=== PATIENT | male | born 1950 | race Caucasian/White ===

== ENCOUNTER 2018-01-01 08:55 | Emergency (ER) | payer MEDICARE, OTHER ==
[~2018-01-01] VITALS: Ht 172.7 cm; Wt 83.0 kg
[2018-01-01 10:21] VITALS: BP 118/80
--- NOTE | 2018-01-01 10:22 | NUR ---
Re-evaluated and updated by MD for discharge-ACI given verbalized understanding. Home ambulatory in stable condition.
== END 2018-01-01 10:47 | disposition home or self-care (01) ==
LOC: ER 08:56
DX: F41.9 Anxiety disorder, unspecified (principal); J44.9 Chronic obstructive pulmonary disease, unspecified; I48.91 Unspecified atrial fibrillation
CPT/HCPCS: 71045; 93005; 99284; A4606; Z7610

== ENCOUNTER 2018-03-10 18:54 | Inpatient (IN) | payer MEDICARE, OTHER ==
[~2018-03-10] VITALS: Ht 172.7 cm; Wt 83.0 kg
--- NOTE | 2018-03-10 19:21 | NUR ---
PT BIB SELF WHO C/O SOB ON EXERTION, [id number]. ALERT AND ORIENTED X 4. ON ROOM AIR, BREATHING EVENLY AND UNLABORED. AWAITING FOR MD FOR EVAL. KEPT COMFORTABLE. WILL CONTINUE TO MONITOR ACCORDINGLY.
[2018-03-10] MEDS ORDERED: methylPREDNISolone SOD SUCC 125 MG/2ML VIAL ONE (19:27)
[2018-03-10] MEDS ORDERED: DILTIAZEM HCL 50 MG IV ONE (19:28)
[2018-03-10] MEDS ORDERED: IPRATROPIUM NEB FS 0.5 MG/2.5 ML AMPUL.NEB NEB ONE (19:30)
[2018-03-10] MEDS ORDERED: ALBUTEROL FS 2.5 MG/3 ML VIAL.NEB NEB ONE (19:30)
[2018-03-10] MEDS ORDERED: DILTIAZEM HCL 50 MG IV IV ONE (19:30)
[2018-03-10] MEDS ORDERED: methylPREDNISolone SOD SUCC 125 MG/2ML VIAL IV ONE (19:30)
[2018-03-10] MEDS ORDERED: DILTIAZEM HCL 25 MG IV ONE (19:32)
[2018-03-10] MEDS ORDERED: APIX5TAB PO (19:33)
[2018-03-10] MEDS ORDERED: METO100T14 PO (19:33)
[2018-03-10] MEDS ORDERED: ATOR10TA PO (19:33)
[2018-03-10] MEDS ORDERED: FINA5TAB3 PO (19:33)
[2018-03-10] MEDS ORDERED: LISI10TA5 PO (19:33)
[2018-03-10] MEDS ORDERED: SPIR25TA PO (19:33)
[2018-03-10] MEDS ORDERED: DILT240C88 PO (19:33)
[2018-03-10] MEDS ORDERED: ASPI-1169 PO (19:33)
[2018-03-10] MEDS ORDERED: TAMS-12 PO (19:33)
[2018-03-10] MEDS ORDERED: LEVA15HF4 INH (19:35)
--- NOTE | 2018-03-10 19:36 | NUR ---
ENDORSED TO NEXT SHIFT BENNY PETER FOR PARVEZ. TOOK CARDIZEM 50MG/10ML GIVEN 10MG ORDERED.
[2018-03-10 19:40] LABS: BASOPHILS % (AUTO) 0.2 % (0.0-2.0); EOSINOPHILS % (AUTO) 0.2 % (0.0-6.0); HEMATOCRIT 29 % (39-51); HEMOGLOBIN 9.1 g/dL (13.5-17.5); LYMPHOCYTES # (AUTO) 1.4 /CMM (0.8-4.8); LYMPHOCYTES % (AUTO) 11.3 % (20.0-44.0); MEAN CORPUSCULAR HGB CONC 32 g/dl (31.0-36.0); MEAN CORPUSCULAR VOLUME 79 fL (80-96); MONOCYTES # (AUTO) 1.2 /CMM (0.1-1.30); MONOCYTES % (AUTO) 9.3 % (2.0-12.0); NEUTROPHILS # (AUTO) 9.9 /CMM (1.8-8.9); PLATELET COUNT (AUTO) 333 /CMM (150-450); RED BLOOD CELL COUNT(AUTO) 3.66 MIL/uL (4.5-6.0); WHITE BLOOD COUNT (AUTO) 12.5 K/uL (4.3-11.0)
--- NOTE | 2018-03-10 19:40 | NUR ---
BLOOD TAKEN BY ENTERPRISE APPLICATIONS MANAGER
[2018-03-10 19:46] LABS: CALCIUM, SERUM 9.6 mg/dL (8.5-10.1); CARBON DIOXIDE 24 mmol/L (21-32); CHLORIDE 100 mmol/L (98-107); CREATININE 1.4 mg/dL (0.6-1.3); GLUCOSE 121 mg/dL (74-106); POTASSIUM 4.8 mmol/L (3.5-5.1); SODIUM SERUM 137 mmol/L (136-145); UREA NITROGEN, BLOOD 35 mg/dL (7-18)
[2018-03-10] MEDS ORDERED: ALBUTEROL FS 2.5 MG/3 ML VIAL.NEB ONE (19:46)
--- NOTE | 2018-03-10 19:50 | NUR ---
RT AT BEDSIDE
[2018-03-10] MEDS ORDERED: LEVOFLOXACIN 750 MG /D5W 150ML PIGGYBACK IV ONE (20:00)
[2018-03-10 20:02] LABS: ALANINE AMINOTRANSFERASE 35 U/L (12-78); ALBUMIN 3.8 g/dL (3.4-5.0); ALKALINE PHOSPHATASE 73 U/L (46-116); ASPARTATE AMINOTRANSFERASE 18 U/L (15-37); B-TYPE NATRIURETIC PEPTIDE 4422 PG/ML (0-125); BILIRUBIN,DIRECT 0.1 mg/dL (0.0-0.2); BILIRUBIN,TOTAL 0.4 mg/dL (0.2-1.0); TOTAL PROTEIN, SERUM 8.1 g/dL (6.4-8.2)
[2018-03-10] MEDS ORDERED: LEVOFLOXACIN 750 MG /D5W 150ML 150 ML IV ONE (20:13)
--- NOTE | 2018-03-10 20:57 | NUR ---
ADMIT TO 325-1 TELE
--- NOTE | 2018-03-10 21:17 | NUR ---
REPORT GIVEN TO LUTHER
[2018-03-10] MEDS ORDERED: DEXTROSE 50%-WATER 50 ML DISP.SYRIN IV PRN (21:30)
[2018-03-10] MEDS ORDERED: ONDANSETRON HCL/PF 4 MG/2 ML VIAL IVP PRN (21:30)
[2018-03-10] MEDS ORDERED: ACETAMINOPHEN 325 MG TABLET PO PRN (21:30)
[2018-03-10] MEDS ORDERED: ALBUTEROL FS 2.5 MG/0.5 ML VIAL.NEB NEB PRN (21:30)
[2018-03-10] MEDS ORDERED: MORPHINE SULFATE INJ 2 MG/ML DISP.SYRIN IV PRN (21:30)
[2018-03-10] MEDS ORDERED: NITROGLYCERIN 0.4 MG/TAB BOTTLE SL PRN (21:30)
[2018-03-10] MEDS ORDERED: MAGNESIUM HYDROXIDE 30 ML UDC PO PRN (21:30)
[2018-03-10] MEDS ORDERED: Z GUARD REMEDY 2 OZ OINT TP PRN (21:30)
[2018-03-10] MEDS ORDERED: MAG HYDROX/AL HYDROX/SIMETH 30 ML UDC PO PRN (21:30)
[2018-03-10] MEDS ORDERED: TEMAZEPAM 15 MG CAPSULE PO PRN (21:30)
--- NOTE | 2018-03-10 21:30 | NUR ---
TOPOGRAPHICAL DRAFTER NOTES - ADMISSION RECEIVED PATIENT FROM ER VIA [place]. WITH PATENT PERIPHERAL IV LINE RAC G#20, SL. PATIENT DENIES DISCOMFORT AT THIS TIME. NO RESPIRATORY DISTRESS NOTED. ADMISSION ROUTINE DONE. PATIENT PREFERRED TO HAVE HIS PANTS ON. BLE PITTING EDEMA + 1 NOTED. KEEP CLEAN DRY AND COMFORTABLE. CALL LIGHT WITHIN EASY REACH. ON TELE MONITOR HR 160 AFIB. STAT ECG DONE. STEAM TUNNEL FEEDER MD NOTIFIED.
[2018-03-10] MEDS: FUROSEMIDE 40 MG/4 ML VIAL IV SCH (21:49)
[2018-03-10] MEDS: ZOLPIDEM TARTRATE 5 MG TABLET PO PRN (21:49)
--- NOTE | 2018-03-10 22:55 | NUR ---
PREPARED FOODS SERVICE TEAM MEMBER NOTES PATIENT ON AFIB 160. TECHNICAL PROJECT LEAD MD DR LACEY NOTIFIED WITH ORDERS NOTED AND CARRIED OUT. PATIENT REMAINED STABLE AND NO COMPLAINTS AT THIS TIME. WILL CONTINUE TO MONITOR ACCORDINGLY.
[2018-03-10] MEDS ORDERED: ATENOLOL 50 MG TABLET PO SCH (23:00)
[2018-03-11] MEDS ORDERED: DILTIAZEM HCL IV 125 MG in IV D5W 100 ML IV PRN ×2
--- NOTE | 2018-03-11 00:10 | NUR ---
PARK INTERPRETIVE RANGER NOTES PATIENT REMAINS AFIB WITH HR 170. NOTIFIED HIGH SCHOOL TEACHER MD WITH ORDER TO TRANSFER PATIENT TO [facility]. REPORT GIVEN TO [facility] RN CHICHI. TRANSFERRED PATIENT TO [facility] 112-2. IN STABLE CONDITION.
[2018-03-11] MEDS: INSULIN REGULAR, HUMAN 100 UNIT/ML 3 ML VIAL SQ PRN ×3 (00:16→23:50)
[2018-03-11] MEDS: BLOOD SUGAR DIAGNOSTIC 1 EACH STRIP IN SCH ×5 (00:17→23:43)
[2018-03-11] MEDS ORDERED: DILTIAZEM HCL 25 MG IV ONE ×2 (00:20→00:21)
[2018-03-11] MEDS ORDERED: DILTIAZEM HCL IV PRN (01:00)
[2018-03-11] MEDS ORDERED: D5W IV PRN (01:00)
[2018-03-11 01:04] VITALS: BP 128/79
--- NOTE | 2018-03-11 01:24 | NUR ---
TD RN NOTES RECEIVED PT FROM BED WITH MS RN. A/O X 4. ON NASAL CANNULA 3LPM SATURATING WELL AND NO RESPIRATORY DISTRESS NOTED. HEART RATE OF AFIB 150. BLOOD PRESSURE OF 128/79. NO FEVER. WILL CONTINUE TO MONITOR PT CLOSELY.
--- NOTE | 2018-03-11 01:26 | NUR ---
TD RN NOTES PER ONCALL. START DILTIAZEM DRIP ON 5MG/HR. WILL CONTINUE TO MONITOR PT CLOSELY.
[2018-03-11] MEDS: ZOLPIDEM TARTRATE 5 MG TABLET PO PRN ×2 (01:27→21:35)
--- NOTE | 2018-03-11 01:35 | NUR ---
TD RN NOTES PER ONCALL OKAY TO GIVE ANOTHER DOSE OF AMBIEN 5MG
--- NOTE | 2018-03-11 01:58 | NUR ---
TD RN NOTES PT REFUSED WOUND PICTURE, WANTS TO REST.
[2018-03-11 04:00] VITALS: BP 114/75
[2018-03-11 06:10] LABS: ALBUMIN 3.4 g/dL (3.4-5.0); BILIRUBIN,TOTAL 0.5 mg/dL (0.2-1.0); CALCIUM, SERUM 9.4 mg/dL (8.5-10.1); CREATININE 1.5 mg/dL (0.6-1.3); MAGNESIUM 1.6 mg/dL (1.8-2.4); PHOSPHORUS 4.4 mg/dL (2.5-4.9); POTASSIUM 4.6 mmol/L (3.5-5.1); TOTAL PROTEIN, SERUM 7.5 g/dL (6.4-8.2)
[2018-03-11 06:32] LABS: BASOPHILS % (AUTO) 0.6 % (0.0-2.0); EOSINOPHILS % (AUTO) 0.1 % (0.0-6.0); HEMATOCRIT 25 % (39-51); HEMOGLOBIN 8.2 g/dL (13.5-17.5); LYMPHOCYTES # (AUTO) 0.4 /CMM (0.8-4.8); LYMPHOCYTES % (AUTO) 5.8 % (20.0-44.0); MEAN CORPUSCULAR HGB CONC 33 g/dl (31.0-36.0); MEAN CORPUSCULAR VOLUME 79 fL (80-96); MONOCYTES # (AUTO) 0.2 /CMM (0.1-1.30); MONOCYTES % (AUTO) 2.5 % (2.0-12.0); NEUTROPHILS # (AUTO) 6.3 /CMM (1.8-8.9); PLATELET COUNT (AUTO) 286 /CMM (150-450); RED BLOOD CELL COUNT(AUTO) 3.21 MIL/uL (4.5-6.0); WHITE BLOOD COUNT (AUTO) 6.9 K/uL (4.3-11.0)
[2018-03-11] MEDS: IPRATROPIUM NEB FS 0.5 MG/2.5 ML AMPUL.NEB NEB PRN ×3 (06:48→19:49)
[2018-03-11 06:53] LABS: APPEARANCE,URINE CLEAR (CLEAR); BILIRUBIN,URINE NEGATIVE (NEGATIVE); BLOOD, URINE NEGATIVE Ery/uL (NEGATIVE); COLOR,URINE YELLOW (YELLOW); KETONES,URINE NEGATIVE (NEGATIVE); LEUKOCYTE ESTERASE ,URINE NEGATIVE (NEGATIVE); NITRITE, URINE NEGATIVE (NEGATIVE); PROTEIN,URINE 100 mg/dl (NEGATIVE); UGLUCOSE NEGATIVE (NEGATIVE); UROBILINOGEN,URINE 0.2 EU/dL (0.2)
--- NOTE | 2018-03-11 07:04 | NUR ---
TD RN NOTES NO ACUTE CHANGES NOTED DURING THE SHIFT. PROVIDED COMFORT AND SAFETY. WILL ENDORSE TO THE AM NURSE FOR CONTINUITY OF CARE
[2018-03-11 07:11] LABS: BACTERIA,URINE Rare /HPF (None Seen); CALCIUM OXALATE CRYSTALS,UR Few /HPF (None Seen); RBC,URINE NONE SEEN /HPF (0-2); SQUAMOUS EPITHELIAL CELL,UR Rare /HPF (None Seen); WBC,URINE 0-2 /HPF (0-3)
[2018-03-11 08:00] VITALS: BP 113/79
[2018-03-11] MEDS ORDERED: METOPROLOL TARTRATE 50 MG TABLET PO SCH (09:00)
[2018-03-11] MEDS ORDERED: LISINOPRIL (10MG) 10 MG TABLET PO SCH (09:00)
[2018-03-11] MEDS: TAMSULOSIN 0.4 MG CAP.SR.24H PO SCH ×2 (09:36→17:50)
[2018-03-11] MEDS: FINASTERIDE (5 MG) 5 MG TABLET PO SCH (09:36)
[2018-03-11] MEDS: ASPIRIN 81 MG TAB.CHEW PO SCH (09:36)
[2018-03-11] MEDS: SPIRONOLACTONE 25 MG TABLET PO SCH (09:36)
[2018-03-11] MEDS: DILTIAZEM HCL CD 240 MG PO SCH (09:36)
[2018-03-11] MEDS: methylPREDNISolone SOD SUCC 40 MG/ML VIAL IV SCH ×3 (09:37→17:50)
[2018-03-11] MEDS: FUROSEMIDE 40 MG/4 ML VIAL IV SCH ×2 (09:39→17:50)
[2018-03-11] MEDS: PANTOPRAZOLE 40 MG TABLET.DR PO SCH (09:39)
[2018-03-11] MEDS ORDERED: LEVALBUTEROL HCL NEB 1.25 MG/0.5 ML VIAL.NEB NEB PRN (11:00)
[2018-03-11] MEDS ORDERED: DIGOXIN INJ 0.5 MG/2 ML AMPUL IV ONE (11:30)
[2018-03-11 12:00] VITALS: BP 109/79
[2018-03-11] MEDS: Magnesium 1GM/D5W 100ML PREMIX 100 ML IV SCH ×2 (12:18→13:22)
[2018-03-11] MEDS: APIXABAN 5 MG TABLET PO SCH ×2 (13:22→17:50)
[2018-03-11] MEDS: HYDROCODONE/APAP 5/325MG 1 EACH TABLET PO PRN (13:46)
[2018-03-11 16:00] VITALS: BP 103/65
[2018-03-11 20:00] VITALS: BP 107/62
[2018-03-11] MEDS ORDERED: LEVOFLOXACIN 750 MG /D5W 150ML 750 MG in PREMIX 1 EA IV SCH (20:00)
[2018-03-11] MEDS: ATORVASTATIN 10 MG TABLET PO SCH (20:31)
[2018-03-12] VITALS: BP 101/63
--- NOTE | 2018-03-12 | NUR ---
[facility]ANK RN NOTE PT STATES HE DOES NOT HAVE DIABETES AND DOES NOT NEED INSULIN. EXPLAINED RISKS AND BENEFITS AND PT REFUSED. WILL MONITOR.
[2018-03-12 04:00] VITALS: BP 91/51
[2018-03-12] MEDS: BLOOD SUGAR DIAGNOSTIC 1 EACH STRIP IN SCH ×3 (06:08→17:09)
[2018-03-12 06:55] LABS: DIGOXIN 0.4 ng/mL (0.90-2.00)
[2018-03-12 08:00] VITALS: BP 116/62
--- NOTE | 2018-03-12 08:00 | NUR ---
[facility]ANK/RN: Pt received, A&Ox4, on RA, denies pain and discomfort, noted with SOB with exertion with audible expiratory wheezing. A-fib 90's on monitor. IV HL flushed, patent and intact. Oriented to unit and poc, educated extensively on meds. Noted with L leg wound with scab and stitches x4, per pt, stitches were supposed to be removed "2 weeks ago." Dry skin noted throughout BLE. Wound care consult requested. Will cont to monitor pt status.
[2018-03-12] MEDS: PANTOPRAZOLE 40 MG TABLET.DR PO SCH (08:14)
[2018-03-12] MEDS: FINASTERIDE (5 MG) 5 MG TABLET PO SCH (08:14)
[2018-03-12] MEDS: FUROSEMIDE 40 MG/4 ML VIAL IV SCH ×2 (08:14→17:08)
[2018-03-12] MEDS: methylPREDNISolone SOD SUCC 40 MG/ML VIAL IV SCH ×3 (08:14→17:08)
[2018-03-12] MEDS: TAMSULOSIN 0.4 MG CAP.SR.24H PO SCH ×2 (08:14→17:09)
[2018-03-12] MEDS: ASPIRIN 81 MG TAB.CHEW PO SCH (08:15)
[2018-03-12] MEDS: SPIRONOLACTONE 25 MG TABLET PO SCH (08:15)
[2018-03-12] MEDS: DILTIAZEM HCL CD 240 MG PO SCH (08:16)
[2018-03-12] MEDS: METOPROLOL SUCCINATE 50 MG TAB.SR.24H PO SCH (08:16)
[2018-03-12] MEDS: APIXABAN 5 MG TABLET PO SCH ×2 (08:17→17:08)
[2018-03-12 09:00] LABS: CALCIUM, SERUM 8.9 mg/dL (8.5-10.1); CREATININE 1.7 mg/dL (0.6-1.3); POTASSIUM 4.5 mmol/L (3.5-5.1)
[2018-03-12] MEDS: IPRATROPIUM NEB FS 0.5 MG/2.5 ML AMPUL.NEB NEB PRN (09:28)
[2018-03-12] MEDS: INSULIN REGULAR, HUMAN 100 UNIT/ML 3 ML VIAL SQ PRN (11:27)
[2018-03-12 12:00] VITALS: BP 103/65
[2018-03-12] MEDS: DIGOXIN 0.125 MG TABLET PO SCH (12:46)
[2018-03-12 16:00] VITALS: BP 108/64
[2018-03-12] MEDS: ATORVASTATIN 10 MG TABLET PO SCH (17:09)
--- NOTE | 2018-03-12 17:30 | NUR ---
[facility]/RN: Jamie Timmons, SAMPLE MAKER at bedside; updated on pt status. Educated on POC, verbalized understanding. SAMPLE MAKER removed stitches x4 on L leg, tolerated well. Pain medicated with [place] as ordered. Per SAMPLE MAKER, apply bactroban to affected site. Noted and carried out. For dc planning tomorrow.
[2018-03-12] MEDS: HYDROCODONE/APAP 5/325MG 1 EACH TABLET PO PRN (17:35)
[2018-03-12] MEDS: LEVALBUTEROL HCL NEB 1.25 MG/0.5 ML VIAL.NEB NEB SCH (19:55)
[2018-03-12] MEDS: IPRATROPIUM NEB FS 0.5 MG/2.5 ML AMPUL.NEB NEB SCH (19:55)
[2018-03-12 20:00] VITALS: BP 102/60
[2018-03-12] MEDS ORDERED: LEVOFLOXACIN 750 MG /D5W 150ML 750 MG in PREMIX 1 EA IV SCH (20:00)
[2018-03-12] MEDS: ZOLPIDEM TARTRATE 5 MG TABLET PO PRN (22:04)
[2018-03-13] VITALS: BP 91/47
[2018-03-13] MEDS: BLOOD SUGAR DIAGNOSTIC 1 EACH STRIP IN SCH ×3 (00:14→12:18)
[2018-03-13] MEDS: INSULIN REGULAR, HUMAN 100 UNIT/ML 3 ML VIAL SQ PRN ×2 (00:21→12:24)
[2018-03-13] MEDS: IPRATROPIUM NEB FS 0.5 MG/2.5 ML AMPUL.NEB NEB SCH ×3 (01:30→14:14)
[2018-03-13 04:00] VITALS: BP 111/60
[2018-03-13] MEDS: HYDROCODONE/APAP 5/325MG 1 EACH TABLET PO PRN ×2 (04:29→08:44)
[2018-03-13] MEDS: LEVALBUTEROL HCL NEB 1.25 MG/0.5 ML VIAL.NEB NEB SCH ×2 (07:49→14:14)
[2018-03-13 08:00] VITALS: BP 125/74
[2018-03-13] MEDS: FINASTERIDE (5 MG) 5 MG TABLET PO SCH (08:30)
[2018-03-13] MEDS: ASPIRIN 81 MG TAB.CHEW PO SCH (08:30)
[2018-03-13] MEDS: PANTOPRAZOLE 40 MG TABLET.DR PO SCH (08:30)
[2018-03-13] MEDS: APIXABAN 5 MG TABLET PO SCH (08:30)
[2018-03-13] MEDS: TAMSULOSIN 0.4 MG CAP.SR.24H PO SCH (08:30)
[2018-03-13] MEDS: SPIRONOLACTONE 25 MG TABLET PO SCH (08:30)
[2018-03-13 08:31] VITALS: BP 125/74
[2018-03-13] MEDS: METOPROLOL SUCCINATE 50 MG TAB.SR.24H PO SCH (08:31)
[2018-03-13] MEDS: DILTIAZEM HCL CD 240 MG PO SCH (08:31)
[2018-03-13] MEDS: FUROSEMIDE 40 MG/4 ML VIAL IV SCH (08:31)
--- NOTE | 2018-03-13 08:31 | NUR ---
INITIAL SOFTWARE SPECIALIST NOTE RCVD PT AWAKE AND ALERT, SHOWING NO S/O DISTRESS, AFIB ON TELE. ON RA TOLERATING WELL. VOIDING TO URINAL. PT AMBULATORY WITH STEADY GAIT. IV SITE C/D/I/PATENT. NO S/O INFILTRATION/PHLEBITIS OBSERVED UPON FLUSHING. WILL CONTINUE TO MONITOR PT FOR SAFETY AND COMFORT. BED IN LOW AND LOCKED POSITION. CALL LIGHT WITHIN REACH.
[2018-03-13] MEDS ORDERED: NEOMY SULF/BACITRAC ZN/POLY 15 GM TUBE TP SCH (09:00)
[2018-03-13] MEDS ORDERED: methylPREDNISolone SOD SUCC 40 MG/ML VIAL IV SCH (09:00)
--- NOTE | 2018-03-13 09:09 | NUR ---
WOUND CARE CONSULT: PT PRESENTS WITH CRUSTED WOUND TO LEFT LATERAL LOWER LEG, PRESENT ON ADMISSION. SUTURES PREVIOUSLY REMOVED BY DNP. RECOMMEND FOLLOW WITH DPM. RECOMMENDATIONS MADE FOR WOUND CARE AND SKIN PROTECTION. DISCUSSED WITH NURSING STAFF. WILL SEE PRN. CURRENT CORINNE SCORE IS 23. MD IN AGREEMENT WITH PLAN OF CARE. Addendum: 03/13/18 at 0911 by ANDRES FINLEY WNDNU Amended: Links added.
[2018-03-13] MEDS ORDERED: MINERAL OIL/PETROLATUM,WHITE 120 GM JAR TP PRN ×2 (09:30→10:30)
[2018-03-13] MEDS: DIGOXIN 0.125 MG TABLET PO SCH (12:19)
[2018-03-13 13:08] LABS: CREATININE 1.5 mg/dL (0.6-1.3); POTASSIUM 3.9 mmol/L (3.5-5.1)
[2018-03-13 13:13] LABS: ALBUMIN 3.5 g/dL (3.4-5.0); BILIRUBIN,TOTAL 0.3 mg/dL (0.2-1.0); HEMATOCRIT 27 % (39-51); HEMOGLOBIN 8.5 g/dL (13.5-17.5); LYMPHOCYTES # (AUTO) 0.2 /CMM (0.8-4.8); LYMPHOCYTES % (AUTO) 1.2 % (20.0-44.0); MEAN CORPUSCULAR HGB CONC 31 g/dl (31.0-36.0); MEAN CORPUSCULAR VOLUME 79 fL (80-96); MONOCYTES # (AUTO) 0.5 /CMM (0.1-1.30); MONOCYTES % (AUTO) 2.6 % (2.0-12.0); NEUTROPHILS # (AUTO) 19.1 /CMM (1.8-8.9); NEUTROPHILS % (AUTO) 96.2 % (43.0-81.0); PLATELET COUNT (AUTO) 284 /CMM (150-450); RED BLOOD CELL COUNT(AUTO) 3.41 MIL/uL (4.5-6.0); TOTAL PROTEIN, SERUM 7.5 g/dL (6.4-8.2); WHITE BLOOD COUNT (AUTO) 19.8 K/uL (4.3-11.0)
[2018-03-13] MEDS ORDERED: PNEUMOCOCCAL 23-VAL P-SAC VAC 0.5 ML VIAL SQ ONE (14:00)
--- NOTE | 2018-03-13 15:24 | NUR ---
PROFESSOR OF POULTRY SCIENCE NOTE PT ALERT AND ORIENTED X 4, DISCHARGED HOME IN STABLE CONDITION, IV SITE REMOVED TIP OF CATHETER INTACT. PRESSURE DRESSING IN PLACE. NO BLEEDING OBSERVED. DISCHARGE INSTRUCTIONS DISCUSSED AND GIVEN TO PT, QUESTIONS ANSWERED. PER PT HE WILL SEE HIS [facility]ACT[facility] NURSE THIS AFTERNOON AT 1730. PER HARSHAL STORM IT WAS OK TO GIVE PNEUMONIA AND FLU VACCINES TO PT, THESE WERE GIVEN ORDERED. PT INSISTED TO WAIT FOR FAMILY IN THE LOBBY AREA, PT WAS ACCOMPANIED TO LOBBY BY ANNIE. PT AMBULATED WITH STEADY GAIT. ALL BELONGINGS WERE TAKEN HOME WITH PT. NO PERSONAL ITEMS WERE LEFT BEHIND.
[2018-03-14] MEDS ORDERED: DAKINS QUARTER STRENGTH (0.125%) 480 ML BOTTLE TOP SCH (09:00)
== END 2018-03-13 15:20 | disposition home or self-care (01) | DRG 871 ==
LOC: ER 19:01 → TELE 21:08 → TELE-TD 03-11 00:04 → TELE1 03-12 15:49
PROVIDERS: ADMIT Nurse Practitioner Acute Care; ATTEND Nurse Practitioner Acute Care
DX: A41.9 Sepsis, unspecified organism (principal); N17.0 Acute kidney failure with tubular necrosis; J18.9 Pneumonia, unspecified organism; I50.23 Acute on chronic systolic (congestive) heart failure; J44.1 Chronic obstructive pulmonary disease with (acute) exacerbation; E87.2 Acidosis; D68.59 Other primary thrombophilia; I13.0 Hypertensive heart and chronic kidney disease with heart failure and stage 1 through stage 4 chronic kidney disease, or unspecified chronic kidney disease; J44.0 Chronic obstructive pulmonary disease with (acute) lower respiratory infection; L97.229 Non-pressure chronic ulcer of left calf with unspecified severity; R65.20 Severe sepsis without septic shock; N40.0 Benign prostatic hyperplasia without lower urinary tract symptoms; Z79.01 Long term (current) use of anticoagulants; D64.9 Anemia, unspecified; E78.5 Hyperlipidemia, unspecified; I25.10 Atherosclerotic heart disease of native coronary artery without angina pectoris; I48.2 Chronic atrial fibrillation; N18.9 Chronic kidney disease, unspecified; Z87.891 Personal history of nicotine dependence; R73.9 Hyperglycemia, unspecified; F41.9 Anxiety disorder, unspecified; S81.812A Laceration without foreign body, left lower leg, initial encounter; X58.XXXA Exposure to other specified factors, initial encounter; Y93.9 Activity, unspecified; Y92.009 Unspecified place in unspecified non-institutional (private) residence as the place of occurrence of the external cause
CPT/HCPCS: 36415; 71045-TC; 80048-TC; 80053-TC; 80061-TC; 80076-TC; 80162-TC; 81000-TC; 82962-TC; 83605-TC; 83735-TC; 83880; 84100-TC; 84484-TC; 85025-TC; 85730-TC; 87040-TC; 87081-TC; 87086-TC; 90732; 93307-TC; A4216; A4606; G0378; J1160; J1815; J1940; J1956; J2920; J2930; J3475; J3490; J7030; J7060; Q2036; Z7610

== ENCOUNTER 2018-05-16 09:03 | Emergency (ER) | payer MEDICARE, OTHER ==
[~2018-05-16] VITALS: Ht 165.1 cm; Wt 65.8 kg
[~2018-05-16 09:03] MED LIST: APIX5TAB PO; ASPI-1169 PO; ATOR10TA PO; DILT240C88 PO; FINA5TAB3 PO; LEVA15HF4 INH; LISI10TA5 PO; METO100T14 PO; SPIR25TA PO; TAMS-12 PO
--- NOTE | 2018-05-16 09:12 | NUR ---
BIB SELF W C/O BACK PAIN x 3 DAYS, DENIES ANY INJURY. TO ER BED 7, HOOKED TO MONITOR, AWAITING MD BURRELL
--- NOTE | 2018-05-16 09:24 | NUR ---
DR LOPEZ AT BEDSIDE
[2018-05-16] MEDS ORDERED: HYDROMORPHONE 1 MG/1 ML DISP.SYRIN IM ONE (09:30)
[2018-05-16] MEDS ORDERED: HYDROMORPHONE 1 MG/1 ML DISP.SYRIN ONE (10:12)
[2018-05-16] MEDS ORDERED: CARISOPRODOL 350 MG TABLET PO ONE (10:30)
[2018-05-16] MEDS ORDERED: HYDROCODONE/APAP 10/325MG 1 EA TABLET PO ONE (10:30)
[2018-05-16] MEDS ORDERED: HYDROCODONE/APAP 10/325MG 1 EA TABLET ONE (10:51)
[2018-05-16] MEDS ORDERED: CARISOPRODOL 350 MG TABLET ONE (10:52)
--- NOTE | 2018-05-16 11:44 | NUR ---
PT ABLE TO AMBULATE AT ED HALLWAY
--- NOTE | 2018-05-16 12:18 | NUR ---
Patient discharged to home in stable condition. Written and verbal after care instructions given. Patient verbalizes understanding of instruction.
[2018-05-16 12:19] VITALS: BP 127/75
== END 2018-05-16 12:19 | disposition home or self-care (01) ==
LOC: ER 09:06
DX: M54.5 Low back pain (principal); G89.29 Other chronic pain; I48.91 Unspecified atrial fibrillation; Z79.82 Long term (current) use of aspirin
CPT/HCPCS: 72131; 96372; 99284; A4606; J1170